=== PATIENT | male | born 1950 | race Native Hawaiian/Other Pacific Islander ===

== ENCOUNTER 2019-12-09 09:48 | Outpatient (CLI) | payer OTHER | END 2019-12-10 03:36 | disposition home or self-care (01) | LOC: MRI 09:48 | DX: M54.16 Radiculopathy, lumbar region (principal); M54.12 Radiculopathy, cervical region ==

== ENCOUNTER 2020-11-09 10:30 | Outpatient (CLI) | payer OTHER | END 2020-11-09 19:31 | disposition home or self-care (01) | LOC: MRI 10:30 | PROVIDERS: ATTEND Neurological Surgery | DX: M54.16 Radiculopathy, lumbar region (principal) ==